=== PATIENT | male | born 1965 | race Caucasian/White ===

== ENCOUNTER → 2018-10-05 | Outpatient (CLI) | payer OTHER ==
--- NOTE | 2018-10-05 17:47 | RADIOLOGY REPORT (SQ) ---
EXAM DESCRIPTION: SACRUM AND COCCYX COMPLETED DATE/TIME: 10/05/2018 5:24 pm REASON FOR STUDY: SACRAL PAIN M53.3 SACROCOCCYGEAL DISORDERS, NOT ELSEWHERE CLASSIFIED COMPARISON: None. NUMBER OF VIEWS: Three views. TECHNIQUE: AP, lateral, and tilt views of the sacrum and coccyx. LIMITATIONS: None. FINDINGS: MINERALIZATION: Normal. BONES: No acute fracture or dislocation. No worrisome bone lesions. SOFT TISSUES: No soft tissue swelling. No foreign body. OTHER: No other significant finding. IMPRESSION: NEGATIVE STUDY OF THE SACRUM AND COCCYX. TECHNICAL DOCUMENTATION: JOB ID: [id number] [employer]- All Rights Reserved Reading location - IP/workstation name: [email or web address]
== END ==
LOC: OD 16:51
PROVIDERS: ATTEND Family Medicine
DX: M53.3 Sacrococcygeal disorders, not elsewhere classified (principal)
CPT/HCPCS: 72220

== ENCOUNTER → 2018-11-23 | Outpatient (CLI) | payer OTHER ==
[2018-11-26 12:58] LABS: ANTINUCLEAR ANTIBODIES Negative (Negative)
[2018-11-28 09:43] LABS: CYCLIC CITRUL PEPTIDE IGG/A AB 5 units (0-19)
[2018-11-28 11:21] LABS: HLA B 27 DISEASE ASSOCIATION Negative (.)
== END ==
LOC: OD 15:51
PROVIDERS: ATTEND Family Medicine
DX: M24.60 Ankylosis, unspecified joint (principal)
CPT/HCPCS: 36415; 85652; 86038; 86140; 86200; 86430; 86812

== ENCOUNTER → 2018-12-05 | Outpatient (CLI) | payer OTHER ==
--- NOTE | 2018-12-05 16:22 | RADIOLOGY REPORT (SQ) ---
EXAM DESCRIPTION: NM 3 PHASE BONE SCAN COMPLETED DATE/TIME: 12/05/2018 3:00 pm REASON FOR STUDY: BONE PAIN M89.8X9 OTHER SPECIFIED DISORDERS OF BONE, UNSPECIFIED SITE COMPARISON: X-rays 10/05/2018. RADIONUCLIDE AND DOSE: 19.8 millicuries Tc99m MDP. The route of agent administration: Intravenous. ADDITIONAL DRUGS AND DOSES: None. TECHNIQUE: Following injection of the radiopharmaceutical, serial blood flow images acquired. Equil ibrium blood pool images then acquired. Routine delayed images at 3 hour acquired of the areas of cl inical concern with additional focused images as needed. AREA OF INTEREST: Sacrum and coccyx. LIMITATIONS: None. FINDINGS: VASCULAR FLOW IMAGES: No asymmetry or focal areas of hyperemia. BLOOD POOL IMAGES: No asymmetry or focal areas of soft-tissue hyper-perfusion. BONES: Normal visualization without areas of photopenia or increased bony uptake of radiopharmaceutic al. KIDNEYS: Symmetric excretion without obstruction. OTHER: No other significant finding. IMPRESSION: NORMAL 3 PHASE BONE SCAN. COMMENT: Quality measure 147: Current bone scan is compared with any available plain radiographs, p rior bone scans, and CT/MRI. TECHNICAL DOCUMENTATION: JOB ID: [id number] [employer]- All Rights Reserved Reading location - IP/workstation name: [email or web address]
== END ==
LOC: RAD 11:23
PROVIDERS: ATTEND Family Medicine
DX: M89.8X9 Other specified disorders of bone, unspecified site (principal)
CPT/HCPCS: 78315; A9561; Q9969